=== PATIENT | female | born 1945 | race Caucasian/White ===

== ENCOUNTER 2019-02-05 13:25 | Outpatient (CLI) | payer MEDICARE ==
--- NOTE | 2019-02-05 13:59 | RAD ---
FRadiograph right hand 2 views: 02/05/2019 HISTORY: 73-year-old female with polyarthralgia. Sjogren's syndrome with keratoconjunctivitis sicca. Lupus. Bi lateral hand pain. COMPARISON: None FINDINGS: Diffuse osteopenia. Mild to moderate DJD at first CMC joint. No high-grade joint space narrowing, ero sions, or high-grade osteophytosis at any other joint. Mild osteophytosis at the third DIP and first IP joint. IMPRESSION: 1. Mild to moderate osteoarthrosis of the first carpometacarpal joint. 2. Mild osteoarthrosis of the first interphalangeal joint and third distal interphalangeal joint. 3. Osteopenia.
--- NOTE | 2019-02-05 14:00 | RAD ---
FRadiograph left hand 2 views: 02/05/2019 HISTORY: 73-year-old female with polyarthralgia, Sjogren's syndrome with keratoconjunctivitis sicca, and syste siobhan lupus erythematosus. Bilateral hand pain. COMPARISON: None FINDINGS: Diffuse osteopenia. Moderate DJD at first CMC. Mild DJD at first IP and third DIP. No fracture. No hi gh-grade DJD at other joints. IMPRESSION: 1. Moderate osteoarthrosis of the first carpometacarpal joint. 2. Osteopenia.
--- NOTE | 2019-02-05 14:01 | RAD ---
F3 views right foot HISTORY: Partial polyarthritis with Sjogren's syndrome AP, lateral and oblique views right foot is obtained. There is hallux valgus deformity of the first metatarsophalangeal joint. No evidence of acute fractures, subluxations or bony lesion seen. No significant erosive changes seen . No lytic changes seen. IMPRESSION: Right great toe hallux valgus deformity otherwise unremarkable.
--- NOTE | 2019-02-05 14:04 | RAD ---
F3 views left foot HISTORY: Polyarthralgias AP, lateral and oblique views left foot demonstrates no evidence of left foot fractures, subluxations or bony lesions. IMPRESSION: Normal 3 views left foot.
== END 2019-02-05 13:26 | disposition home or self-care (01) ==
LOC: BICRAD 13:25
PROVIDERS: ATTEND Internal Medicine Rheumatology
DX: M35.01 Sjogren syndrome with keratoconjunctivitis (principal); M25.50 Pain in unspecified joint; R53.83 Other fatigue; M20.11 Hallux valgus (acquired), right foot; M18.0 Bilateral primary osteoarthritis of first carpometacarpal joints; M19.041 Primary osteoarthritis, right hand; M85.80 Other specified disorders of bone density and structure, unspecified site

== ENCOUNTER 2021-11-14 09:51 | Outpatient (CLI) | payer OTHER | END 2021-11-14 09:52 | disposition home or self-care (01) | LOC: BICMAMMO 09:51 | PROVIDERS: ATTEND Internal Medicine | DX: Z12.31 Encounter for screening mammogram for malignant neoplasm of breast (principal); Z80.3 Family history of malignant neoplasm of breast | CPT/HCPCS: 77063; 77067 ==

== ENCOUNTER 2022-11-22 08:46 | Outpatient (CLI) | payer MEDICARE | END 2022-11-22 08:47 | disposition home or self-care (01) | LOC: BICMAMMO 08:46 | PROVIDERS: ATTEND Internal Medicine | DX: Z12.31 Encounter for screening mammogram for malignant neoplasm of breast (principal); Z80.3 Family history of malignant neoplasm of breast | CPT/HCPCS: 77063; 77067 ==

== ENCOUNTER 2023-11-29 11:22 | Outpatient (CLI) | payer MEDICARE | END 2023-11-29 11:23 | disposition home or self-care (01) | LOC: BICMAMMO 11:22 | PROVIDERS: ATTEND Internal Medicine | DX: Z12.31 Encounter for screening mammogram for malignant neoplasm of breast (principal); Z13.820 Encounter for screening for osteoporosis; Z80.3 Family history of malignant neoplasm of breast; M85.89 Other specified disorders of bone density and structure, multiple sites | CPT/HCPCS: 77063; 77067; 77080 ==

== ENCOUNTER 2024-07-08 07:21 | Outpatient (CLI) | payer MEDICARE | END 2024-07-08 07:22 | disposition home or self-care (01) | LOC: BICMRI 07:21 | PROVIDERS: ATTEND Orthopaedic Surgery | DX: S83.241A Other tear of medial meniscus, current injury, right knee, initial encounter (principal); S83.281A Other tear of lateral meniscus, current injury, right knee, initial encounter; M71.21 Synovial cyst of popliteal space [Baker], right knee; M25.461 Effusion, right knee; M22.2X1 Patellofemoral disorders, right knee; M84.451A Pathological fracture, right femur, initial encounter for fracture ==

== ENCOUNTER 2024-08-14 10:06 | Outpatient (CLI) | payer MEDICARE | END 2024-08-14 10:07 | disposition home or self-care (01) | LOC: BICCT 10:06 | PROVIDERS: ATTEND Orthopaedic Surgery | DX: M17.11 Unilateral primary osteoarthritis, right knee (principal); M25.461 Effusion, right knee ==

== ENCOUNTER 2024-08-20 10:24 | Outpatient (CLI) | payer MEDICARE ==
[2024-08-20 13:17] LABS: #Basophils 0.04 10x3/uL (0.0-0.2); %Basophils 0.7 % (0.0-1.0); %Lymphocytes 26.4 % (21.0-51.0); %Monocytes 6.8 % (0.0-10.0); %Neutrophils 64.8 % (42.0-75.0); Hematocrit 43.5 % (36.0-47.0); Hemoglobin 14.4 g/dL (12.0-16.0); Mean Corpuscular HGB CONC 33.1 g/dL (32.0-36.0); Mean Corpuscular Hemoglobin 31.5 pg (27.0-31.0); Mean Corpuscular Volume 95.2 fL (78.0-98.0); Mean Platelet Volume 8.5 fL (7.4-10.4); Platelet Count 192 10x3/uL (130-400); RBC Distribution Width 12.3 % (11.5-14.5); Red Blood Cell (RBC) Count 4.57 mill/uL (4.20-5.40)
[2024-08-20 13:30] LABS: Anion Gap 13 mmol/L (10-20); BUN (Urea Nitrogen) 15 mg/dL (9.8-20.1); Calc. Creatinine Clearance 0 mL/min (70-130); Calcium 9.6 mg/dL (7.8-10.44); Carbon Dioxide 29 mmol/L (23-31); Chloride 105 mmol/L (98-107); Estimated GFR 78; Glucose 89 mg/dL (83-110); Potassium 3.7 mmol/L (3.5-5.1); Sodium 143 mmol/L (136-145)
[2024-08-20 13:36] LABS: Prothrombin Time 13.2 sec (12.0-14.7)
[2024-08-20 13:46] LABS: Bilirubin Negative (Negative); Blood, Urine Negative (Negative); Clarity Clear (Clear); Glucose, Urine (Dipstick) Normal (Negative); Ketone, Urine Negative (Negative); Leukocyte Negative Leu/uL (Negative); Nitrite Negative (Negative); Protein, Urine (Dipstick) Negative (Neg-Trace); Urobilinogen Normal mg/dL (Less than 2)
== END 2024-08-20 10:25 | disposition home or self-care (01) ==
LOC: LABBT 10:24
PROVIDERS: ATTEND Orthopaedic Surgery
DX: Z01.818 Encounter for other preprocedural examination (principal); M17.11 Unilateral primary osteoarthritis, right knee
CPT/HCPCS: 71046; 80048; 81003; 85025; 85610; 87081; 93005; 93010

== ENCOUNTER 2024-08-25 06:57 | Observation (INO) | payer MEDICARE ==
[2024-08-20 10:53] VITALS: BMI 19.9
[2024-08-25] MEDS ORDERED: fentaNYL 50 mcg/mL 1 mL Vial ONE ×3 (07:56→13:35)
[2024-08-25] MEDS ORDERED: Bupivacaine PF 0.5% 30 ML VIAL ONE (07:57)
[2024-08-25] MEDS ORDERED: Midazolam HCl 2 mg/2 ml Vial ONE (07:57)
[2024-08-25] MEDS ORDERED: Sodium Chloride 0.9% 100 ML ONE (08:20)
[2024-08-25] MEDS ORDERED: Vancomycin 1 GM/200 ML (FROZEN) BAG ONE (08:20)
[2024-08-25] MEDS ORDERED: Tranexamic Acid 1,000 MG/10 ML VIAL ONE ×2 (08:20→11:29)
[2024-08-25] MEDS ORDERED: CEFAZOLIN 2 GM VIAL ONE (08:20)
[2024-08-25] MEDS ORDERED: Bupivacaine HCl 0.5%/Epinephrine 1:200,000/PF 30 ml Vial ONE (08:55)
[2024-08-25] MEDS ORDERED: Bupivacaine 0.25% HCL 30 ML VIAL ONE (09:03)
[2024-08-25] MEDS ORDERED: PROPOFOL 20 ML ONE (09:14)
[2024-08-25] MEDS ORDERED: fentaNYL PF 100 MCG/2 ML SYRINGE ONE (09:14)
[2024-08-25] MEDS ORDERED: fentaNYL 50 mcg/mL 1 mL Vial SLOW IVP PRN (09:15)
[2024-08-25] MEDS ORDERED: Dexamethasone 4 mg/ml Vial ONE (09:15)
[2024-08-25] MEDS ORDERED: traMADol HCl 50 MG TAB PO PRN ×2 (09:15)
[2024-08-25] MEDS ORDERED: Metoclopramide HCl 10 MG (2 mL) VIAL ONE (09:15)
[2024-08-25] MEDS ORDERED: Ondansetron PF 4 MG/2 ML Vial ONE (09:15)
[2024-08-25] MEDS ORDERED: Zolpidem Tartrate 5 MG TAB PO PRN ×2 (09:15→11:04)
[2024-08-25] MEDS ORDERED: Promethazine HCl 25 MG/ML VIAL IM PRN ×2 (09:15→11:04)
[2024-08-25] MEDS ORDERED: Lidocaine 1% PF 5 ML VIAL ONE (09:15)
[2024-08-25] MEDS ORDERED: Ropivacaine 0.2% 550 ML 550 ML NERVE BLCK SCH (09:15)
[2024-08-25] MEDS ORDERED: Ondansetron PF 4 MG/2 ML Vial IVP PRN ×2 (09:15→11:04)
[2024-08-25] MEDS ORDERED: ePHEDrine Sulfate 50 MG/10 ML VIAL ONE (09:41)
[2024-08-25] MEDS ORDERED: Acetaminophen 325 MG TAB PO PRN (11:04)
[2024-08-25] MEDS ORDERED: diphenhydrAMINE 25 MG CAP PO PRN (11:04)
[2024-08-25] MEDS: Sodium Chloride 0.9% 1,000 ML IV SCH (14:19)
[2024-08-25] MEDS: Tranexamic Acid 1,000 MG in Sodium Chloride 0.9% 100 ML IVPB SCH (14:44)
[2024-08-25] MEDS: Ketorolac Tromethamine 30 MG (1 mL) VIAL IVP SCH (15:00)
[2024-08-25] MEDS: CEFAZOLIN 2 GM in Sodium Chloride 0.9% 100 ML IVPB SCH (16:58)
[2024-08-25] MEDS: HYDROcodone/Acetaminophen 10/325 mg Tablet PO PRN ×2 (18:04→22:27)
[2024-08-25] MEDS: Senokot S 8.6-50 MG TAB PO SCH (20:25)
[2024-08-25] MEDS: Aspirin 81 mg Enteric Coated Tablet PO SCH (20:25)
[2024-08-25] MEDS: Vancomycin 1.5 GM in Sodium Chloride 0.9% 250 ML 300 ML IVPB SCH (20:25)
[2024-08-25] MEDS: Ferrous Gluconate 324 MG TAB PO SCH (20:25)
[2024-08-25] MEDS: FLU (Fluad Triv) TS24-25 (65UP)/MF59C/PF 45 MCG/0.5 ML Syringe IM ONE (20:26)
[2024-08-25] MEDS ORDERED: Non-Formulary Item 1 EACH (Lifitegrast [Xiidra] 1 EACH Droperette) EA EYE SCH (21:00)
[2024-08-26 05:17] LABS: Hematocrit 37.3 % (36.0-47.0); Hemoglobin 11.6 g/dL (12.0-16.0); Mean Corpuscular HGB CONC 31.1 g/dL (32.0-36.0); Mean Platelet Volume 10.7 fL (7.4-10.4); Platelet Count 173 10x3/uL (130-400); RBC Distribution Width 12.7 % (11.5-14.5); Red Blood Cell (RBC) Count 3.62 mill/uL (4.20-5.40)
[2024-08-26] MEDS: Levothyroxine Sodium 25 MCG TAB PO SCH (06:25)
[2024-08-26] MEDS: Multivitamin W/ Minerals 1 TAB PO SCH (09:05)
[2024-08-26 11:52] VITALS: BMI 19.9
[2024-08-26 16:03] VITALS: BP 103/55; TEMP 97.8
== END 2024-08-26 17:40 | disposition home or self-care (01) ==
LOC: SDC 06:57 → INTOOBSV 14:01 → SURG B 14:01
PROVIDERS: ADMIT Orthopaedic Surgery; ATTEND Orthopaedic Surgery
PROC: 0SRC0JZ Replacement of Right Knee Joint with Synthetic Substitute, Open Approach (ICD-10-PCS; principal; 2024-08-25)
DX: M17.11 Unilateral primary osteoarthritis, right knee (principal); M84.451A Pathological fracture, right femur, initial encounter for fracture; S83.241A Other tear of medial meniscus, current injury, right knee, initial encounter; S83.281A Other tear of lateral meniscus, current injury, right knee, initial encounter; X58.XXXA Exposure to other specified factors, initial encounter
CPT/HCPCS: 0055T; 27447; 64447; 36415; 85027; A4306; C1713; C1776; C1889; J0665; J1100; J1885; J2250; J2405; J2704; J2765; J2795; J3010; J3370; J3370-JW; J7030; J7050